=== PATIENT | male | born 1930 | race Two or more races ===

== ENCOUNTER 2020-09-13 20:25 | Inpatient (IN) | payer MEDICARE, BC ==
[2020-09-13] MEDS ORDERED: ONDANSETRON 4 MG/2 ML VIAL IVP STA (20:56)
[2020-09-13] MEDS ORDERED: PANTOPRAZOLE 40 MG/10 ML VIAL IVP STA (20:56)
[2020-09-13] MEDS ORDERED: SODIUM CHLORIDE 0.9% 1,000 ML IV STA (20:56)
--- NOTE | 2020-09-13 21:07 | ED ---
Abdominal Pain HPI - General Chief Complaint: Abdominal Pain Stated Complaint: Abd Pain Time Seen by Provider: 09/13/20 20:45 Source: patient, EMS Mode of arrival: EMS Limitations: no limitations - History of Present Illness Initial Comments: This 89-year-old male presents with a complaint of abdominal pain and vomiting. He states that the abdominal pain is diffuse in nature. It came on this past evening. He was seen at [facility] and had workup which showed slight elevation of his AST and ALTs but otherwise normal labs. He also had CT imaging of his abdomen and pelvis which did not show any acute abnormalities. Discharge home with recommend follow-up the next day for repeat laboratory analysis. Over the evening he apparently developed increased pain, nausea, and vomiting. He also apparently felt weak and somewhat fatigued. He went back to [facility] and they repeated the laboratory analysis. There was dramatic changes and his labs which show his SGOT and SGPT to increase severely from being mildly elevated due to being 2070 and 1127 respectively. The bilirubin went from normal to 3.5. The lipase 1 from normal to 16,800. His other labs were essentially within normal limits. They did do a chest x-ray which did not show any gross focal airspace disease appreciated with blunting of the costophrenic angles. He rates his current pain level at 2 of 10. He states that the nausea is intermittent. He had an EKG at the other facility which showed a normal sinus rhythm with no acute ST-T wave changes. Past medical history is positive for intracranial aneurysm, syncope, hypertension, pleural thickening bilaterally, hyperlipidemia, stress dose exposure, cellulitis of right leg, degenerative osteoarthritis, chronic renal disease, GERD, leg edema, onychomycosis, abnormality of gait, fatigue, pneumonia - Related Data Home Medications Medication Instructions Recorded Confirmed Aspirin EC [Ecotrin Low Dose] 81 mg PO DAILY 09/13/20 09/13/20 Calcium Carb/Magnesium Hydrox 2 tab PO DAILY 09/13/20 09/13/20 [Rolaids Chewable Tablet] Isosorbide Mononitrate ER [Imdur] 30 mg PO DAILY 09/13/20 09/13/20 Lisinopril [Prinivil] 10 mg PO DAILY 09/13/20 09/13/20 Potassium Chloride ER [K-Dur 20] 20 meq PO DAILY 09/13/20 09/13/20 Psyllium Husk [Metamucil] 0.4 gm PO DAILY 09/13/20 09/13/20 Simvastatin [Zocor] 10 mg PO DAILY 09/13/20 09/13/20 amLODIPine [Norvasc] 5 mg PO DAILY 09/13/20 09/13/20 Allergies Allergy/AdvReac Type Severity Reaction Status Date / Time hydromorphone [From Dilaudid] Allergy Unknown Verified 09/13/20 21:51 latex Allergy Rash/Hives Verified 09/13/20 21:51 Review of Systems ROS Statement: Those systems with pertinent positive or pertinent negative responses have been documented in the HPI. ROS Other: All systems not noted in ROS Statement are negative. Past Medical History History of Any Multi-Drug Resistant Organisms: None Reported Past Psychological History: No Psychological Hx Reported Smoking Status: Former smoker Past Alcohol Use History: Occasional Past Drug Use History: None Reported General Exam - General Exam Comments Initial Comments: GENERAL: The patient is well nourished and well hydrated. VITAL SIGNS: Heart rate, blood pressure, respiratory rate reviewed as recorded in nurse's notes. EYES: Pupils are round and reactive. Extraocular movements are intact. No conjunctival / lid redness or swelling. ENT: No external evidence of injury, swelling, or ecchymosis. Airway is patent. Throat is clear. NECK: Nontender. No swelling or evidence of injury. No subcutaneous emphysema. Trachea is midline. No thyroid mass. HEART: Regular rate and rhythm. Good peripheral pulses. LUNGS/CHEST: Breath sounds clear and equal bilaterally. No rales, rhonchi, or wheezes. No ecchymosis, subcutaneous emphysema, or tenderness. ABDOMEN: Mild diffuse abdominal tenderness noted. No palpable masses or organomegaly. No peritoneal signs. No abdominal wall swelling or ecchymosis. EXTREMITIES: No extremity tenderness. Normal muscle tone and function. No thoracolumbar tenderness. NEUROLOGIC: Sensation is grossly intact. Cranial nerve exam reveals face is symmetrical, tongue is midline, speech is clear. SKIN: No abrasions or ecchymosis is noted. No induration or masses noted. PSYCHIATRIC: Alert and oriented. Appropriate behavior and judgment. Limitations: no limitations Course Vital Signs 09/13/20 09/13/20 20:32 21:40 Temperature 98.1 F Pulse Rate 64 63 Respiratory 18 18 Rate Blood Pressure 159/71 157/75 O2 Sat by Pulse 99 99 Oximetry Medical Decision Making - Medical Decision Making The patient was seen and examined. All diagnostics were reviewed and these do include previous ER documents 2 from [facility], EKG, chest x-ray, and computed tomography scan findings. There is markedly elevation of his lipase and liver function studies which have occurred over the last day. It is felt as though this likely could be related to a stone in the common bile duct. A gallbladder ultrasound is ordered. He receives IV fluids and 4 of Zofran. His pain currently is well controlled. It is felt as though he will require admission to the hospital for further workup and treatment. He is agreeable with this plan. The gallbladder ultrasound does show evidence of multiple stones and appears contracted. The common bile duct is not visualized but there is no increased intrahepatic ducts. Case is discussed with internal medicine and patient will be admitted and gastroenterology will be consulted. - Lab Data Lab Results 09/13/20 Range/Units 21:17 Coronavirus (PCR) Not Detected (Not Detectd) Disposition Clinical Impression: Acute abdominal pain, Nausea and vomiting, Pancreatitis, Hypertension, We akness, Hepatic failure, Gallstones Disposition: ADMITTED IP TO THIS [facility] Condition: Fair Referrals: Devonte Encarnacion MD [Primary Care Provider] - 1-2 days Time of Disposition: 22:52 Decision Date: 09/13/20 Decision Time: 22:52
--- NOTE | 2020-09-13 22:42 | US ---
EXAMINATION TYPE: US gallbladder DATE OF EXAM: 09/13/2020 COMPARISON: NONE CLINICAL HISTORY: abd pain. Abdominal pain x couple weeks per patient. Hx appendectomy. EXAM MEASUREMENTS: Liver Length: 17.1 cm Gallbladder Wall: 0.35 cm CBD: Not visualized. Right Kidney: 12.9 x 4.3 x 4.8 cm Limited due to patient body habitus and overlying bowel gas. Pancreas: Limited, appears slightly heterogeneous. Liver: Limited. Appears coarse and to have an increased echogenicity. Measures 17.1 cm, upper limits of normal. Gallbladder: Not well seen. Shadowing appearance at area of the gallbladder. There appears to be th e anterior wall visible only, measuring slightly thick at 0.35 cm. Evidence for sonographic Aguirre's sign: Yes CBD: Not visualized. Right Kidney: Appears slightly enlarged. Possible column of Nick (arrow on image). IMPRESSION: There is some shadowing in the anticipated region of the gallbladder consistent with contracted gallb ladder filled with stones. No dilated ducts. Common bile duct not visualized. Intrahepatic bile ducts are not dilated.
[2020-09-13] MEDS ORDERED: NALOXONE 0.4 MG/ML 1 ML VIAL IV PRN (22:53)
[2020-09-13] MEDS ORDERED: MORPHINE SULFATE 4 MG/ML SYRINGE IV PRN (23:00)
[2020-09-13] MEDS ORDERED: ONDANSETRON 4 MG/2 ML VIAL IVP PRN (23:00)
--- NOTE | 2020-09-14 02:00 | P.HPIM ---
History of Present Illness H&P Date: 09/14/20 Patient is an 89-year-old male with a PMH of hypertension and hyperlipidemia who presented to the emergency room as a transfer from [facility]. History supplemental by the transfer documentation. The patient initially presented to [facility] on 09/12 at 10:30 PM with complaints of abdominal pain. The patient had reported abdominal pain, underwent laboratory evaluation showing mild transaminitis and a CT abdomen which was unremarkable. The patient was ultimately discharged home with a follow-up liver function panel testing and a primary care follow-up. The patient however return to the [facility] emergency room earlier today noting that his abdominal pain had worsened. The patient also now developed nausea and a single episode of vomiting and was brought in by his daughter. The patient's T evaluation now revealed a lipase of 16,800, AST 2070, ALT 1027, T bili 3.5, direct bili 2.7. Further evaluation revealed a sodium of 135, potassium 3.9, chloride 99, CO2 28, BUN 18, creatinine 0.8, glucose 117, WBC count 10.3, hemoglobin 16.0, CPK 170, CPK 56, INR 1.15. Repeat CT abdomen and pelvis revealed multiple gallstones with no findings to suggest acute cholecystitis patchy areas of lung consolidation and partially visualized lower lobes along with a masslike consolidation in the left lower lobe and a right lower lobe consolidation unchanged from prior. The patient was subsequently transferred to [place] emergency room and was admitted to the medicine service and subsequently seen and evaluated. He reports ongoing abdominal pain at time of interview, 5 out of 10, which had been gradually worsening over the past few days. The pain is diffuse throughout the abdomen, aching in nature, without clear alleviating or exacerbating features. He reports the single episode of vomiting earlier today which was nonbloody and nonbilious. Denied diarrhea. Denied history of gallstones or pancreatitis. Denied alcohol use. Further denied chest discomfort, shortness of breath, fever or chills, cough. A gallbladder ultrasound in the emergency room revealed cholelithiasis with a nonvisualized common bile duct and intrahepatic bile ducts not dilated. Review of systems: Pertinent positives and negatives as discussed in HPI, a complete review of sys tems was performed and all other systems are negative. Physical examination: General: non toxic, no distress, appears at stated age, normal weight Derm: no unusual rashes/lesions no unusual ecchymoses, warm, dry Head: atraumatic, normocephalic, symmetric Eyes: EOMI, no lid lag, anicteric sclera, pupils equal round reactive to light ENT: Nose and ears atraumatic, no thrush, no pharyngeal erythema Neck: No thyromegaly, no cervical lymphadenopathy, trachea midline, supple Mouth: no lip lesion, mucus membranes moist Cardiovascular: S1S2 reg, no murmur, positive posterior tibial pulse bilateral, no edema, capillary refill less than 2 seconds Lungs: CTA bilateral, no rhonchi, no rales , no accessory muscle use Abdominal: soft, diffuse, no guarding, no appreciable organomegaly, normal bowel sounds Ext: no gross muscle atrophy, muscle strength 5 out of 5 in all 4 extremities grossly, no contractures, Neuro: CN II-XI grossly intact, light touch intact all 4 extremities, finger to nose within normal limits, Psych: Alert, oriented, appropriate affect Assessment/plan Pancreatitis and transaminitis, possibly secondary to gallstones -GI consult for ERCP/MRCP -Continue with nothing by mouth -Monitor LFTs and lipase -IV fluids -Pain control -Antiemetics Chronic conditions: Hypertension, hyperlipidemia -Hold off on home statin in setting of transaminitis -Continue with home antihypertensives DVT prophylaxis -Lovenox The patient is admitted with an anticipated greater than than 2 midnight stay for evaluation of pancreatitis. CODE STATUS: Full code Discussed with: Patient Anticipated discharge date: 3-[address]: Home A total of 40 minutes was spent on the care of this complex patient more than 50% of the time was spent in counseling and care coordination. Past Medical History History of Any Multi-Drug Resistant Organisms: None Reported Past Psychological History: No Psychological Hx Reported Smoking Status: Former smoker Past Alcohol Use History: Occasional Past Drug Use History: None Reported Medications and Allergies Home Medications Medication Instructions Recorded Confirmed Type Aspirin EC [Ecotrin Low Dose] 81 mg PO DAILY 09/13/20 09/13/20 History Calcium Carb/Magnesium Hydrox 2 tab PO DAILY 09/13/20 09/13/20 History [Rolaids Chewable Tablet] Isosorbide Mononitrate ER [Imdur] 30 mg PO DAILY 09/13/20 09/13/20 History Lisinopril [Prinivil] 10 mg PO DAILY 09/13/20 09/13/20 History Potassium Chloride ER [K-Dur 20] 20 meq PO DAILY 09/13/20 09/13/20 History Psyllium Husk [Metamucil] 0.4 gm PO DAILY 09/13/20 09/13/20 History Simvastatin [Zocor] 10 mg PO DAILY 09/13/20 09/13/20 History amLODIPine [Norvasc] 5 mg PO DAILY 09/13/20 09/13/20 History Allergies Allergy/AdvReac Type Severity Reaction Status Date / Time hydromorphone [From Dilaudid] Allergy Unknown Verified 09/13/20 21:51 latex Allergy Rash/Hives Verified 09/13/20 21:51 Physical Exam Vitals: Vital Signs Temp Pulse Resp BP Pulse Ox 09/13/20 23:00 61 18 156/74 100 09/13/20 21:40 63 18 157/75 99 09/13/20 20:32 98.1 F 64 18 159/71 99 Intake and Output 09/13/20 09/13/20 09/14/20 14:59 22:59 06:59 Other: Weight 117.934 kg
[2020-09-14 04:01] LABS: Anisocytosis Slight; Basophils % (A) 0 %; Eosinophils # (A) 0.1 k/uL (0-0.7); Eosinophils % (A) 1 %; HCT 46.9 % (39.0-53.0); HGB 15.2 gm/dL (13.0-17.5); Lymphocytes # (A) 0.8 k/uL (1.0-4.8); Lymphocytes % (A) 9 %; MCH 30.2 pg (25.0-35.0); MCHC 32.4 g/dL (31.0-37.0); Mean Platelet Volume 7.9; Monocytes # (A) 0.4 k/uL (0-1.0); Monocytes % (A) 5 %; Neutrophils # (A) 7.3 k/uL (1.3-7.7); Neutrophils % (A) 85 %; Platelet Count 135 k/uL (150-450); RBC 5.04 m/uL (4.30-5.90); RDW 17.1 % (11.5-15.5); WBC 8.7 k/uL (3.8-10.6)
[2020-09-14 04:12] LABS: African American GFR (CKD) >90 (>60 ml/min/1.73 sqM); Albumin 3.7 g/dL (3.5-5.0); Alkaline Phosphatase 203 U/L (38-126); Anion Gap 7 mmol/L; Blood Urea Nitrogen 20 mg/dL (9-20); Carbon Dioxide 26 mmol/L (22-30); Chloride 105 mmol/L (98-107); Glucose 122 mg/dL (74-99); Magnesium 2.2 mg/dL (1.6-2.3); Non-African American GFR(CKD) 86 (>60 ml/min/1.73 sqM); Phosphorus 3.8 mg/dL (2.5-4.5); Potassium 4.4 mmol/L (3.5-5.1); Sodium 138 mmol/L (137-145); Total Bilirubin 4.4 mg/dL (0.2-1.3); Total Protein 6.3 g/dL (6.3-8.2)
[2020-09-14 04:21] LABS: ALT 831 U/L (4-49); AST 1330 U/L (17-59)
[2020-09-14 04:25] LABS: INR 1.1 (<1.2); Prothrombin Time 11.4 sec (9.0-12.0)
[2020-09-14 04:35] LABS: Lipase 4239 U/L (23-300)
[2020-09-14] MEDS ORDERED: CALCIUM CARB PO SCH (09:00)
[2020-09-14] MEDS ORDERED: [UNRECOGNIZED DRUG - OTHER] PO SCH (09:00)
[2020-09-14] MEDS ORDERED: ATORVASTATIN 10 MG TAB PO SCH (09:00)
[2020-09-14] MEDS ORDERED: MAGNESIUM HYDROX PO SCH (09:00)
[2020-09-14] MEDS: amLODIPine 5 MG TAB PO SCH (10:12)
[2020-09-14] MEDS: ISOSORBIDE MONONITRATE ER 30 MG TAB.ER.24H PO SCH (10:12)
[2020-09-14] MEDS: lisinopriL 10 MG TAB PO SCH (10:12)
[2020-09-14] MEDS: PSYLLIUM HUSK 100% 6 GM PACKET PO SCH (10:15)
[2020-09-14] MEDS: POTASSIUM CHLORIDE ER 20 MEQ TAB.ER PO SCH (10:16)
[2020-09-14] MEDS: ASPIRIN 81 MG PO SCH (10:16)
[2020-09-14] MEDS: ENOXAPARIN 40 MG/0.4 ML SYRINGE SQ SCH (10:16)
--- NOTE | 2020-09-14 11:08 | P.PN ---
Subjective Progress Note Date: 09/14/20 Pt still c/o abd pain. Has dry throat. ANNA. Objective - Vital Signs Vital signs: Vital Signs Temp 98.1 F 09/13/20 20:32 Pulse 53 L 09/14/20 06:00 Resp 14 09/14/20 06:00 BP 154/73 09/14/20 06:00 Pulse Ox 98 09/14/20 06:00 Intake & Output 09/13/20 09/14/20 09/14/20 18:59 06:59 18:59 Weight 117.934 kg - Exam Gen: awake, alert HEENT: normocephalic, atraumatic, good hearing acuity, moist mucous membranes Resp: good air exchange, breathing comfortably with no accessory muscle use, clear to auscultation bilaterally without wheezes or crackles CVS: good distal perfusion x 4, regular rate and rhythm without murmurs GI: Soft, tenderness to palpation in the right upper quadrant, epigastrium, nondistended : no SPT, no CVAT, jessica catheter not present MSK: no pitting edema, no clubbing Neuro: non-focal, moving all extremities Psych: cooperative, euthymic mood - Labs CBC & Chem 7: 09/14/20 03:47 09/14/20 03:47 Labs: Abnormal Lab Results - Last 24 Hours (Table) 09/14/20 09/14/20 Range/Units 03:47 03:47 RDW 17.1 H (11.5-15.5) % Plt Count 135 L (150-450) k/uL Lymphocytes # 0.8 L (1.0-4.8) k/uL Glucose 122 H (74-99) mg/dL Total Bilirubin 4.4 H (0.2-1.3) mg/dL AST 1330 H (17-59) U/L ALT 831 H (4-49) U/L Alkaline Phosphatase 203 H (38-126) U/L Lipase 4239 H (23-300) U/L Assessment and Plan Assessment: Gallstone Pancreatitis -GI consult for ERCP/MRCP -Gen Sx consult for cholecystectomy -Continue with nothing by mouth -Monitor LFTs and lipase -IV fluids -Pain control -Antiemetics Chronic conditions: Hypertension, hyperlipidemia -Hold off on home statin in setting of transaminitis -Continue with home antihypertensives DVT prophylaxis -Lovenox The patient is admitted with an anticipated greater than than 2 midnight stay for evaluation of pancreatitis. CODE STATUS: Full code Discussed with: Patient Anticipated discharge date: 3-[address]: Home
[2020-09-14] MEDS: PANTOPRAZOLE 40 MG/10 ML VIAL IV SCH (11:33)
--- NOTE | 2020-09-14 11:54 | P.GSCN ---
History of Present Illness Consult date: 09/14/20 History of present illness: CHIEF COMPLAINT: Abdominal pain HISTORY OF PRESENT ILLNESS: This is a 89-year-old male with a known history of hypertension and hyperlipidemia. Patient's surgical history includes an appendectomy as a child. Patient presents to the hospital with complaints of abdominal pain. Please note most of history is obtained from patient's iva huitron. Patient's abdominal pain started suddenly on Saturday evening. Patient reports the pain as a band around the upper abdomen. He had no relief in his symptoms after taking Tums or Aleve. He went to [facility] on 09/12/2020 and per patient's daughter had computed tomography scan of the abdomen with no contrast is unremarkable and mildly elevated liver enzymes. Patient was discharged home. Patient's pain continued to worsen he returned again to [place] emergency room on 09/13/2020 and was told that his liver enzymes and lipase had increased. Patient had a repeat computed tomography scan of the abdomen and pelvis showing multiple gallstones. Patient was therefore transferred to [facility]. He had an abdominal ultrasound completed here showing some shadowing in the anticipated region of the gallbladder consistent with contracted gallbladder filled with stones. No dilated ducts. Common bile duct was not visualized. Intrahepatic bile ducts are not dilated. Patient is still reporting epigastric and right upper quadrant pain with nausea. Medications are helping. Surgical service has been consulted regards to gallstone pancreatitis. GI service is also on consult for possible ERCP. Patient denies any cardiac history. PAST MEDICAL HISTORY: See list. PAST SURGICAL HISTORY: See list. MEDICATIONS: See list. ALLERGIES: See list. SOCIAL HISTORY: No illicit drug use. REVIEW OF SYSTEMS: CONSTITUTIONAL: Denies fever or chills. HEENT: Denies blurred vision, vision changes, or eye pain. Denies hemoptysis ENDOCRINE: Denies heat or cold intolerance. CARDIOVASCULAR: Denies chest pain or pressure. RESPIRATORY: No shortness of breath. GASTROINTESTINAL: Please refer to HPI NEURO: Denies history of seizures. PSYCH: No depression or suicidal ideation HEMATOLOGIC: Denies bleeding disorders. LYMPHATIC: The patient denies any lumps and bumps around the neck. GENITOURINARY: Denies any blood in urine or increased urinary frequency. MUSCULOSKELETAL: Denies myalgias. Denies joint swelling. Denies decreased range of motion beyond patients baseline. SKIN: Denies pruitis. Denies rash. PHYSICAL EXAM: VITAL SIGNS: Reviewed GENERAL: Well-developed in no acute distress. HEENT: No sclera icterus. Extraocular movements grossly intact. Moist buccal mucosa. Head is atraumatic, normocephalic. Hears conversational speech. No nasal drainage. NECK: Supple without lymphadenopathy. CHEST: Non-labored respirations and equal bilateral excursions. CARDIOVASCULAR: Regular rate with regular rhythm. Palpable 2+ radial pulses. ABDOMEN: Soft. Nondistended. Tenderness in the epigastric or right upper quadrant areas MUSCULOSKELETAL: No clubbing or cyanosis. NEUROLOGIC: No focal or lateralizing signs. Cranial nerves II through XII mavis sly intact. PSYCH: Appropriate affect. Alert and oriented to person, place and time. SKIN: Well perfused. Good skin turgor. LABORATORY DATA: WBC 8.7 hemoglobin 15.2 platelets 135 sodium 138 potassium 4.4 creatinine 0.66 glucose 122 Total bilirubin 4.4 AST 1330 ALT 831 alk phos 203 lipase 4230 IMAGING: Abdominal ultrasound completed here showing some shadowing in the anticipated region of the gallbladder consistent with contracted gallbladder filled with stones. No dilated ducts. Common bile duct was not visualized. Intrahepatic bile ducts are not dilated. ASSESSMENT: 1. Gallstone pancreatitis 2. Elevated LFTs 3. Prior history of appendectomy 4. Hypertension 5. Hyperlipidemia PLAN: -Further recommendations forthcoming per surgeon -Awaiting GI evaluation regarding ERCP -Keep patient nothing by mouth -Continue IV fluids -Continue pain medication as needed -Continue antiemetics as needed Thank you for this consultation Physician Mortgage Banker note has been reviewed by physician. Signing provider agrees with the documented findings, assessment, and plan of care. Past Medical History Past Medical History: Cancer, GERD/Reflux, Hearing Disorder / Deafness, Hyperlipidemia, Hypertension, Pneumonia, Renal Disease, Respiratory Disorder, Sleep Apnea/CPAP/BIPAP, Syncope, Vascular Disorder Additional Past Medical History / Comment(s): Asbestos exposure while in the [place], bilateral pleural thickening, past R pleural effusion, JORGE L CKD, occasional lower leg edema, venous stasis, dermatitis, past R lower leg ce llulitis, skin cancer with removals, constipation, abnormal gait, fatigue. History of Any Multi-Drug Resistant Organisms: None Reported Past Surgical History: Appendectomy Additional Past Surgical History / Comment(s): Nasal surgery d/t fracture, vein stripping in legs, benign tumor removed from back of neck, dermoid cyst removed from back, skin cancer removals, Past Anesthesia/Blood Transfusion Reactions: No Reported Reaction Additional Past Anesthesia/Blood Transfusion Reaction / Comm: Pt has received blood in past without reaction. Smoking Status: Former smoker - Past Family History Father Family Medical History: Myocardial Infarction (AZ) Additional Family Medical History / Comment(s): Father of a [place] at the age of 56yrs. Mother Family Medical History: CVA/TIA Additional Family Medical History / Comment(s): Obesity. Mother of a CVA at the age of 63yrs. Medications and Allergies Home Medications Medication Instructions Recorded Confirmed Type Aspirin EC [Ecotrin Low Dose] 81 mg PO DAILY 09/13/20 09/13/20 History Calcium Carb/Magnesium Hydrox 2 tab PO DAILY 09/13/20 09/13/20 History [Rolaids Chewable Tablet] Isosorbide Mononitrate ER [Imdur] 30 mg PO DAILY 09/13/20 09/13/20 History Lisinopril [Prinivil] 10 mg PO DAILY 09/13/20 09/13/20 History Potassium Chloride ER [K-Dur 20] 20 meq PO DAILY 09/13/20 09/13/20 History Psyllium Husk [Metamucil] 0.4 gm PO DAILY 09/13/20 09/13/20 History Simvastatin [Zocor] 10 mg PO DAILY 09/13/20 09/13/20 History amLODIPine [Norvasc] 5 mg PO DAILY 09/13/20 09/13/20 History Allergies Allergy/AdvReac Type Severity Reaction Status Date / Time hydromorphone [From Dilaudid] Allergy Unknown Verified 09/13/20 21:51 latex Allergy Rash/Hives Verified 09/13/20 21:51 Surgical - Exam Vital Signs Temp Pulse Resp BP Pulse Ox 98.1 F 64 18 159/71 99 09/13/20 20:32 09/13/20 20:32 09/13/20 20:32 09/13/20 20:32 09/13/20 20:32 Results - Labs 09/14/20 03:47 09/14/20 03:47 Abnormal Lab Results - Last 24 Hours (Table) 09/14/20 09/14/20 Range/Units 03:47 03:47 RDW 17.1 H (11.5-15.5) % Plt Count 135 L (150-450) k/uL Lymphocytes # 0.8 L (1.0-4.8) k/uL Glucose 122 H (74-99) mg/dL Total Bilirubin 4.4 H (0.2-1.3) mg/dL AST 1330 H (17-59) U/L ALT 831 H (4-49) U/L Alkaline Phosphatase 203 H (38-126) U/L Lipase 4239 H (23-300) U/L Diabetes panel 09/14/20 Range/Units 03:47 Sodium 138 (137-145) mmol/L Potassium 4.4 (3.5-5.1) mmol/L Chloride 105 (98-107) mmol/L Carbon Dioxide 26 (22-30) mmol/L BUN 20 (9-20) mg/dL Creatinine 0.66 (0.66-1.25) mg/dL Glucose 122 H (74-99) mg/dL Calcium 9.0 (8.4-10.2) mg/dL AST 1330 H (17-59) U/L ALT 831 H (4-49) U/L Alkaline Phosphatase 203 H (38-126) U/L Total Protein 6.3 (6.3-8.2) g/dL Albumin 3.7 (3.5-5.0) g/dL Calcium panel 09/14/20 Range/Units 03:47 Calcium 9.0 (8.4-10.2) mg/dL Phosphorus 3.8 (2.5-4.5) mg/dL Albumin 3.7 (3.5-5.0) g/dL Pituitary panel 09/14/20 Range/Units 03:47 Sodium 138 (137-145) mmol/L Potassium 4.4 (3.5-5.1) mmol/L Chloride 105 (98-107) mmol/L Carbon Dioxide 26 (22-30) mmol/L BUN 20 (9-20) mg/dL Creatinine 0.66 (0.66-1.25) mg/dL Glucose 122 H (74-99) mg/dL Calcium 9.0 (8.4-10.2) mg/dL Adrenal panel 09/14/20 Range/Units 03:47 Sodium 138 (137-145) mmol/L Potassium 4.4 (3.5-5.1) mmol/L Chloride 105 (98-107) mmol/L Carbon Dioxide 26 (22-30) mmol/L BUN 20 (9-20) mg/dL Creatinine 0.66 (0.66-1.25) mg/dL Glucose 122 H (74-99) mg/dL Calcium 9.0 (8.4-10.2) mg/dL Total Bilirubin 4.4 H (0.2-1.3) mg/dL AST 1330 H (17-59) U/L ALT 831 H (4-49) U/L Alkaline Phosphatase 203 H (38-126) U/L Total Protein 6.3 (6.3-8.2) g/dL Albumin 3.7 (3.5-5.0) g/dL
[2020-09-14] MEDS ORDERED: PIPERACILLIN-TAZOBACTAM 3.375 GM in SODIUM CHLORIDE 0.9% 100 ML IVPB SCH (12:00)
--- NOTE | 2020-09-14 14:09 | P.CONS ---
History of Present Illness - Reason for Consult Consult date: 09/14/20 Abdominal pain, pancreatitis Requesting physician: Marci Johnson - Chief Complaint Transfer from [facility] for abdominal pain, elevated LFTs - History of Present Illness A pleasant 89-year-old white male who was a transfer from [facility] with abdominal pain, nausea, and noted elevated LFTs and lipase. He has a past medical history of hypertension and hyperlipidemia. No previous coronary artery disease. He presented to [facility] on Saturday with right upper quadrant and epigastric pain, he had labs done and was sent home. He returned Saturday with increased pain associated with nausea and vomiting, he was noted to have an increase in LFTs, CT of the abdomen was unremarkable. He was subsequently transferred to this hospital for further management. He denies any previous history of liver disease, elevated LFTs, or pancreatitis. He denies any alcohol use, antibiotics or new medications. On admission his total bilirubin was 4.4, alkaline phosphatase 203, AST 1330, ALT 831, and lipase 4239. WBC 8.7, hemoglobin 15.2, hematocrit 46.9, platelet count 135,000, INR 1.1. Abdominal ultrasound showed coarse liver, with increased echogenicity. Some shadowing in an to region of gallbladder consistent with contracted gallbladder filled with stones. No dilated ducts. COPD not well visualized. Intrahepatic bile ducts not dilated. Review of Systems REVIEW OF SYSTEMS: CARDIOPULMONARY: No chest pain or shortness of breath. Gastrointestinal: Right upper quadrant and epigastric pain. Positive nausea or vomiting. No hematemesis, coffee-ground emesis. No rectal bleeding, or melena. Normal bowel movement. GENITOURINARY: No dysuria or hematuria. MUSCULOSKELETAL: Reports normal range of motion., Joint pain. SKIN: No rashes. No jaundice. ENDOCRINE: No chills, fevers. No excessive weight gain or loss. No polydipsia or polyuria. PSYCHIATRIC: Unremarkable. NEUROLOGY: No change in mental status. Denies dizziness, headache. ENT: Vision unremarkable. CONSTITUTIONAL: No recent weight loss. No fever, chills, night sweats. Past Medical History History of Any Multi-Drug Resistant Organisms: None Reported Past Psychological History: No Psychological Hx Reported Smoking Status: Former smoker Past Alcohol Use History: Occasional Past Drug Use History: None Reported - Past Family History Father Family Medical History: Myocardial Infarction ([place]) Additional Family Medical History / Comment(s): Father of a [place] at the age of 56yrs. Mother Family Medical History: CVA/TIA Additional Family Medical History / Comment(s): Obesity. Mother of a CVA at the age of 63yrs. Medications and Allergies Home Medications Medication Instructions Recorded Confirmed Type Aspirin EC [Ecotrin Low Dose] 81 mg PO DAILY 09/13/20 09/13/20 History Calcium Carb/Magnesium Hydrox 2 tab PO DAILY 09/13/20 09/13/20 History [Rolaids Chewable Tablet] Isosorbide Mononitrate ER [Imdur] 30 mg PO DAILY 09/13/20 09/13/20 History Lisinopril [Prinivil] 10 mg PO DAILY 09/13/20 09/13/20 History Potassium Chloride ER [K-Dur 20] 20 meq PO DAILY 09/13/20 09/13/20 History Psyllium Husk [Metamucil] 0.4 gm PO DAILY 09/13/20 09/13/20 History Simvastatin [Zocor] 10 mg PO DAILY 09/13/20 09/13/20 History amLODIPine [Norvasc] 5 mg PO DAILY 09/13/20 09/13/20 History Allergies Allergy/AdvReac Type Severity Reaction Status Date / Time hydromorphone [From Dilaudid] Allergy Unknown Verified 09/13/20 21:51 latex Allergy Rash/Hives Verified 09/13/20 21:51 Physical Exam Vitals: Vital Signs Temp Pulse Resp BP Pulse Ox 09/14/20 06:00 53 L 14 154/73 98 09/14/20 05:00 50 L 18 106/55 97 09/14/20 03:55 65 18 156/74 99 09/14/20 03:10 65 18 156/74 95 09/13/20 23:00 61 18 156/74 100 09/13/20 21:40 63 18 157/75 99 09/13/20 20:32 98.1 F 64 18 159/71 99 Intake and Output 09/13/20 09/14/20 09/14/20 22:59 06:59 14:59 Other: Weight 117.934 kg General appearance: The patient is alert, oriented, appears in no acute distress. HET: Head is normocephalic and atraumatic. Conjunctiva pink. Sclera anicteric. Neck: Supple without lymphadenopathy. Trachea midline. Heart: S1 S2. Regular rate and rhythm. Lungs: Clear to auscultation.. Abdomen: Soft, right upper quadrant and epigastric tenderness, nondistended with bowel sounds. No guarding or rigidity. Skin: No rashes. Mildly jaundice. Extremities: No pedal edema. Neurological: No focal deficits. Alert and oriented 3. Results CBC & Chem 7: 09/14/20 03:47 09/14/20 03:47 Labs: Abnormal Lab Results - Last 24 Hours (Table) 09/14/20 09/14/20 Range/Units 03:47 03:47 RDW 17.1 H (11.5-15.5) % Plt Count 135 L (150-450) k/uL Lymphocytes # 0.8 L (1.0-4.8) k/uL Glucose 122 H (74-99) mg/dL Total Bilirubin 4.4 H (0.2-1.3) mg/dL AST 1330 H (17-59) U/L ALT 831 H (4-49) U/L Alkaline Phosphatase 203 H (38-126) U/L Lipase 4239 H (23-300) U/L US - abdomen: report reviewed (Liver coarse, increased echogenicity. Some shadowing in the anticipated region of gallbladder consistent with contracted gallbladder filled with stones. No dilated ducts. CPT nonpalpable visualized. Intrahepatic bile ducts not dilated.) Assessment and Plan (1) Pancreatitis Narrative/Plan: 10-year-old male who was transferred for [facility] with elevated LFTs, lipase and abdominal pain. Patient with no prior history of gallbladder disease or pancreatitis. Denies any previous history of liver disease or e levation in liver enzymes. He presented with elevated LFTs, total bilirubin 4.4, alkaline phosphatase 203, AST 1330, ALT 831, lipase 4239. Had a CT of the abdomen and [facility] that was unremarkable. Ultrasound of the abdomen here shows coarse liver with increased echogenicity. Some shadowing in this pain in region of gallbladder consistent with contracted gallbladder filled with stones. No dilated ducts. CBD is not well visualized. Intrahepatic bile ducts not dilated. There is likely dealing with a common bile duct obstruction, will proceed with ERCP tomorrow. Will begin IV Zosyn prophylactically. Current Visit: Yes Status: Acute Code(s): K85.90 - ACUTE PANCREATITIS WITHOUT NECROSIS OR INFECTION, UNSP SNOMED Code(s): 14519845 (2) Abdominal pain Current Visit: Yes Status: Acute Code(s): R10.9 - UNSPECIFIED ABDOMINAL PAIN SNOMED Code(s): 76085808 (3) Nausea and vomiting Current Visit: Yes Status: Acute Code(s): R11.2 - NAUSEA WITH VOMITING, UNSPECIFIED SNOMED Code(s): 28097671 Plan: 1. Clear liquid in moderation 2. Repeat lipase, CMP, CBC in the morning 3. Nothing by mouth after midnight 4. IV Zosyn every 12 hours 5. Indomethacin 100 mg per rectum one hour prior to ERCP 6. Plan for ERCP tomorrow, procedure discussed with patient and his daughter who is at the bedside in detail. Risks and benefits of procedure discussed with them, patient is willing to proceed. 7. Gen. surgery on consult 8. Antiemetics as needed Thank you consultation, we will continue to follow closely Dr. De Leon I agree with the dictator's note, documented as a scribe by Laura Wu.
[2020-09-15] MEDS: PIPERACILLIN-TAZOBACTAM 3.375 GM in SODIUM CHLORIDE 0.9% 100 ML IVPB SCH ×3 (01:41→16:36)
[2020-09-15 06:25] LABS: Anisocytosis Slight; HCT 43.3 % (39.0-53.0); HGB 14.4 gm/dL (13.0-17.5); MCH 30.6 pg (25.0-35.0); MCHC 33.2 g/dL (31.0-37.0); MCV 92.3 fL (80.0-100.0); Platelet Count 150 k/uL (150-450); WBC 17.9 k/uL (3.8-10.6)
[2020-09-15 09:44] LABS: African American GFR (CKD) 92.4 (60.0-200.0); Albumin 3.5 g/dL (3.80-4.90); Albumin/Globulin Ratio 1.75 (1.60-3.17); Anion Gap 7.1 mmol/L (4.00-12.00); BUN/Creat Ratio 28.75 Ratio (12.00-20.00); Calcium 8.4 mg/dL (8.7-10.3); Carbon Dioxide 22.9 mmol/L (21.6-31.8); Non-African American GFR(CKD) 79.8 (60.0-200.0); Total Bilirubin 2.5 mg/dL (0.2-1.2); Total Protein 5.5 g/dL (6.2-8.2)
[2020-09-15] MEDS: ISOSORBIDE MONONITRATE ER 30 MG TAB.ER.24H PO SCH (10:14)
[2020-09-15] MEDS: amLODIPine 5 MG TAB PO SCH (10:14)
[2020-09-15] MEDS: PANTOPRAZOLE 40 MG/10 ML VIAL IV SCH (10:14)
[2020-09-15] MEDS: lisinopriL 10 MG TAB PO SCH (10:14)
--- NOTE | 2020-09-15 11:17 | P.PN ---
Subjective Progress Note Date: 09/15/20 No new complaints. Reports improvement in abd pain with pain meds. NPO during interview with anticipated ERCP today. Objective - Vital Signs Vital signs: Vital Signs Temp 97.6 F 09/15/20 04:43 Pulse 75 09/15/20 04:43 Resp 18 09/15/20 04:43 BP 147/65 09/15/20 04:43 Pulse Ox 92 L 09/15/20 04:43 Intake & Output 09/14/20 09/15/20 09/15/20 18:59 06:59 18:59 Intake Total 100 Output Total 250 Balance -150 Weight 117.934 kg Intake: Intake, IV Titration 100 Amount Piperacillin-Tazobactam 3 100 .375 gm In Sodium Chloride 0.9% 100 ml @ 25 mls/hr IVPB Q8HR [facility] Rx# :[id number] Output: Urine 250 Other: Voiding Method Urinal Urinal # Voids 2 - Exam Gen: awake, alert HEENT: normocephalic, atraumatic, good hearing acuity, moist mucous membranes Resp: good air exchange, breathing comfortably with no accessory muscle use, clear to auscultation bilaterally without wheezes or crackles CVS: good distal perfusion x 4, regular rate and rhythm without murmurs GI: Soft, tenderness to palpation in the right upper quadrant, epigastrium, nondistended : no SPT, no CVAT, jessica catheter not present MSK: no pitting edema, no clubbing Neuro: non-focal, moving all extremities Psych: cooperative, euthymic mood - Labs CBC & Chem 7: 09/15/20 06:02 09/15/20 06:02 Labs: Abnormal Lab Results - Last 24 Hours (Table) 09/15/20 09/15/20 Range/Units 06:02 06:02 WBC 17.9 H (3.8-10.6) k/uL RDW 17.0 H (11.5-15.5) % BUN/Creatinine Ratio 28.75 H (12.00-20.00) Ratio Calcium 8.4 L (8.7-10.3) mg/dL Total Bilirubin 2.5 H (0.2-1.2) mg/dL AST 322 H (14-35) U/L ALT 480 H (10-49) U/L Alkaline Phosphatase 204 H (41-126) U/L Total Protein 5.5 L (6.2-8.2) g/dL Albumin 3.50 L (3.80-4.90) g/dL Lipase 208 H (14-60) U/L Assessment and Plan Assessment: Gallstone Pancreatitis -GI consult for ERCP, pending 09/15 -Gen Sx consult for cholecystectomy -Continue with nothing by mouth -Monitor LFTs and lipase -IV fluids -Pain control -Antiemetics Chronic conditions: Hypertension, hyperlipidemia -Hold off on home statin in setting of transaminitis -Continue with home antihypertensives DVT prophylaxis -Lovenox The patient is admitted with an anticipated greater than than 2 midnight stay for evaluation of pancreatitis. CODE STATUS: Full code Discussed with: Patient Anticipated discharge date: 3-[address]: Home
[2020-09-15] MEDS ORDERED: INDOMETHACIN 50MG SUPPOSITORY RECTAL ONE (12:00)
[2020-09-15] MEDS ORDERED: PHENYLEPHRINE-0.9% NACL SYG 1,000 MCG/10 ML SYRINGE ONE (13:43)
[2020-09-15] MEDS ORDERED: ROCURONIUM 10 MG/ML (5 ML VIAL) IV ONE (13:43)
[2020-09-15] MEDS ORDERED: PROPOFOL 10 MG/ML 20 ML VIAL IV ONE (13:43)
[2020-09-15] MEDS ORDERED: LIDOCAINE 1% INJ 10MG/ML (20 ML MDV) ONE (13:43)
[2020-09-15] MEDS ORDERED: SUCCINYLCHOLINE CHLORIDE 100 MG/5 ML SYR IV ONE (13:43)
[2020-09-15] MEDS ORDERED: ePHEDrine SULFATE/0.9% NACL/PF 50 MG/5 ML SYRINGE IV ONE (13:43)
--- NOTE | 2020-09-15 13:46 | P.PN ---
Subjective Progress Note Date: 09/15/20 CHIEF COMPLAINT: Gallstone pancreatitis HISTORY OF PRESENT ILLNESS: Surgical service is following regards to patient's gallstone pancreatitis. He has had slight decrease in his abdominal pain. Denies any nausea or vomiting. He is scheduled for ERCP today with GI service. He is currently nothing by mouth for today's procedure. He denies any nausea or vomiting. Afebrile. WBC is up at 17.9 hemoglobin 14.4 platelets 150 sodium 136 potassium 4.0 creatinine 0.8 total bilirubin and LFTs trending down. Lipase is down from 4239-208 PHYSICAL EXAM: VITAL SIGNS: Reviewed GENERAL: Well-developed in no acute distress. HEENT: No sclera icterus. Extraocular movements grossly intact. Moist buccal mucosa. Head is atraumatic, normocephalic. Hears conversational speech. No nasal drainage. NECK: Supple without lymphadenopathy. CHEST: Non-labored respirations and equal bilateral excursions. CARDIOVASCULAR: Palpable 2+ radial pulses. ABDOMEN: Soft. Nondistended tenderness with palpation of the right upper quadrant MUSCULOSKELETAL: No clubbing or cyanosis. NEUROLOGIC: No focal or lateralizing signs. Cranial nerves II through XII grossly intact. PSYCH: Appropriate affect. Alert and oriented to person, place and time. SKIN: Well perfused. Good skin turgor. ASSESSMENT: 1. Gallstone pancreatitis 2. Elevated LFTs 3. Prior history of appendectomy 4. Hypertension 5. Hyperlipidemia PLAN: -ERCP failed and was aborted per GI service. Therefore, from surgical standpoint would recommend that patient be transferred to a tertiary care center. He requires a higher level of care for his gallstone pancreatitis. -Continue antibiotics -Continue IV fluids -Continue pain medication as needed Physician Hr Specialist note has been reviewed by physician. Signing provider agrees with the documented findings, assessment, and plan of care. Objective - Vital Signs Vital signs: Vital Signs Temp 99.2 F 09/15/20 12:24 Pulse 75 09/15/20 12:24 Resp 18 09/15/20 12:24 BP 101/56 09/15/20 12:24 Pulse Ox 92 L 09/15/20 12:24 Intake & Output 09/14/20 09/15/20 09/15/20 18:59 06:59 18:59 Intake Total 100 Output Total 250 Balance -150 Weight 117.934 kg Intake: Intake, IV Titration 100 Amount Piperacillin-Tazobactam 3 100 .375 gm In Sodium Chloride 0.9% 100 ml @ 25 mls/hr IVPB Q8HR [facility] Rx# :[id number] Output: Urine 250 Other: Voiding Method Urinal Urinal # Voids 2 - Labs CBC & Chem 7: 09/15/20 06:02 09/15/20 06:02 Labs: Abnormal Lab Results - Last 24 Hours (Table) 09/15/20 09/15/20 Range/Units 06:02 06:02 WBC 17.9 H (3.8-10.6) k/uL RDW 17.0 H (11.5-15.5) % BUN/Creatinine Ratio 28.75 H (12.00-20.00) Ratio Calcium 8.4 L (8.7-10.3) mg/dL Total Bilirubin 2.5 H (0.2-1.2) mg/dL AST 322 H (14-35) U/L ALT 480 H (10-49) U/L Alkaline Phosphatase 204 H (41-126) U/L Total Protein 5.5 L (6.2-8.2) g/dL Albumin 3.50 L (3.80-4.90) g/dL Lipase 208 H (14-60) U/L
[2020-09-15] MEDS ORDERED: SODIUM CHLORIDE 0.9% 500 ML 500 ML IV ONE ×2 (13:48)
--- NOTE | 2020-09-15 15:29 | FL ---
Fluoroscopy HISTORY: Common bile duct stone, liver failure 8 seconds fluoroscopy time supplied to the referring clinician. 2 0 intraoperative C-arm images docu ment the procedure. See dictated report from gastroenterology.
--- NOTE | 2020-09-15 15:42 | P.PCN ---
Date of Procedure: 09/15/20 Description of Procedure: Brief history: 89-year-old white male who was a transfer from [facility] with abdominal pain, nausea, and noted elevated LFTs and lipase. He has a past medical history of hypertension and hyperlipidemia. No previous coronary artery disease. He presented to [facility] on Saturday with right upper quadrant and epigastric pain, he had labs done and was sent home. He returned Saturday with increased pain associated with nausea and vomiting, he was noted to have an increase in LFTs, CT of the abdomen was unremarkable. He was subsequently transferred to this hospital for further management. He denies any previous history of liver disease, elevated LFTs, or pancreatitis. He denies any alcohol use, antibiotics or new medications. On admission his total bilirubin was 4.4, alkaline phosphatase 203, AST 1330, ALT 831, and lipase 4239. WBC 8.7, hemoglobin 15.2, hematocrit 46.9, platelet count 135,000, INR 1.1. Abdominal ultrasound showed coarse liver, with increased echogenicity. Some shadowing in an to region of gallbladder consistent with contracted gallbladder filled with stones. No dilated ducts. Procedure performed: ERCP failed/aborted Preoperative diagnoses: Gallstone pancreatitis, abdominal pain, hyperbilirubinemia suspected choledocholithiasis IV sedation per anesthesia Estimated blood loss: Minimal. Procedure: After informed consent was obtained from the patient and after the risks benefits and complications including bleeding perforation and pancreatitis explained in detail the patient was brought into the endoscopy unit. The patient was placed in prone position and IV conscious sedation was administered by anesthesia under continuous monitoring. The Olympus side-viewing duodenoscope was then inserted into the mouth and esophagus intubated without any difficulty. The scope was gradually advanced into the stomach and duodenum. The major papilla was not well-visualized is multiple attempts to reduce the endoscope into a neutral position were unsuccessful and the endoscope could not be positioned appropriately for attempts at cannulation. Repositioning and external pressure unsuccessful. At this time the procedure was aborted. The patient tolerated the procedure well. Impression: Failed/aborted ERCP. Gallstone pancreatitis, hyperbilirubinemia, abdominal pain. Recommendations: The findings of this examination were discussed with the patient as well as a family. Given improvement in patient's bilirubin to 2.5 today, there is a possibility that the gallstone has passed through the bile duct. Case will be discussed with the surgical team and if plan is for laparoscopic cholecystectomy on Saturday MRI will be ordered, otherwise if recommendation from there service is for transfer to outside facility will hold off. Continue broad-spectrum antibiotic therapy. Continue supportive care. Continue other management as per primary team..
[2020-09-15 15:44] VITALS: BMI 36.2
[2020-09-15] MEDS: PSYLLIUM HUSK 100% 6 GM PACKET PO SCH (16:36)
[2020-09-15] MEDS: ASPIRIN 81 MG PO SCH (16:36)
[2020-09-15] MEDS: POTASSIUM CHLORIDE ER 20 MEQ TAB.ER PO SCH (16:36)
[2020-09-15] MEDS: ENOXAPARIN 40 MG/0.4 ML SYRINGE SQ SCH (16:36)
[2020-09-15 19:35] VITALS: BP 137/67; PULSE 72; RESP 16; TEMP 97.5
--- NOTE | 2020-09-16 11:22 | P.DS ---
Providers Date of admission: 09/13/20 22:53 Expected date of discharge: 09/16/20 Attending physician: Marci Johnson MD Consults: 09/13/20 23:03 Consult Physician Routine Consulting Provider: Graeme De Leon Consult Reason/Comments: abd pain, pancreatitis, hepatic failure Do you want consulting provider notified?: Yes 09/14/20 08:12 Consult Physician Routine Consulting Provider: Samaria Rome Consult Reason/Comments: Gallstone pancreatitis Do you want consulting provider notified?: Yes Primary care physician: Devonte Encarnacion MD Hospital Course: Gallstone Pancreatitis -GI consult for ERCP, was completed on 09/15, but was unsuccessful; could not find sphincter of oddi, no bulging at the sphincter, and no dilation of biliary ducts -Gen Sx consult for cholecystectomy, however, felt patient warrants transfer to tertiary care due to difficulty with ERCP -Continue with nothing by mouth -Patient was kept NPO for pancreatitis, and had specialty consultation as above. However, given patient's condition, he was transferred to [facility] under the care of Dr. Malik. Chronic conditions: Hypertension, hyperlipidemia -Held off on home statin in setting of transaminitis while in house -Continued with home antihypertensives Assessment: Gen: awake, alert HEENT: normocephalic, atraumatic, good hearing acuity, moist mucous membranes Resp: good air exchange, breathing comfortably with no accessory muscle use, clear to auscultation bilaterally without wheezes or crackles CVS: good distal perfusion x 4, regular rate and rhythm without murmurs GI: Soft, tenderness to palpation in the right upper quadrant, epigastrium, nondistended : no SPT, no CVAT, jessica catheter not present MSK: no pitting edema, no clubbing Neuro: non-focal, moving all extremities Psych: cooperative, euthymic mood Patient Condition at Discharge: Undetermined Plan - Discharge Summary Discharge Rx Participant: No New Discharge Prescriptions: No Action Psyllium Husk [Metamucil] 0.4 gm PO DAILY Simvastatin [Zocor] 10 mg PO DAILY Potassium Chloride ER [K-Dur 20] 20 meq PO DAILY Calcium Carb/Magnesium Hydrox [Rolaids Chewable Tablet] 2 tab PO DAILY Aspirin EC [Ecotrin Low Dose] 81 mg PO DAILY amLODIPine [Norvasc] 5 mg PO DAILY Lisinopril [Prinivil] 10 mg PO DAILY Isosorbide Mononitrate ER [Imdur] 30 mg PO DAILY Discharge Medication List Aspirin EC [Ecotrin Low Dose] 81 mg PO DAILY 09/13/20 [History] Calcium Carb/Magnesium Hydrox [Rolaids Chewable Tablet] 2 tab PO DAILY 09/13/20 [History] Isosorbide Mononitrate ER [Imdur] 30 mg PO DAILY 09/13/20 [History] Lisinopril [Prinivil] 10 mg PO DAILY 09/13/20 [History] Potassium Chloride ER [K-Dur 20] 20 meq PO DAILY 09/13/20 [History] Psyllium Husk [Metamucil] 0.4 gm PO DAILY 09/13/20 [History] Simvastatin [Zocor] 10 mg PO DAILY 09/13/20 [History] amLODIPine [Norvasc] 5 mg PO DAILY 09/13/20 [History] Follow up Appointment(s)/Referral(s): Devonte Encarnacion MD [Primary Care Provider] - 1-2 days Discharge Disposition: OTHER INSTITUTION NOT DEFINED
== END 2020-09-15 22:10 | disposition other institution (70) | DRG 440 ==
LOC: EC 20:25 → 5NMEDONC 22:53
PROVIDERS: ADMIT Internal Medicine; ATTEND Internal Medicine
PROC: 0DJ08ZZ Inspection of Upper Intestinal Tract, Via Natural or Artificial Opening Endoscopic (ICD-10-PCS; principal; 2020-09-15 12:55)
DX: K85.10 Biliary acute pancreatitis without necrosis or infection (principal); E78.5 Hyperlipidemia, unspecified; I12.9 Hypertensive chronic kidney disease with stage 1 through stage 4 chronic kidney disease, or unspecified chronic kidney disease; N18.9 Chronic kidney disease, unspecified; Z53.9 Procedure and treatment not carried out, unspecified reason; Z20.822 Contact with and (suspected) exposure to COVID-19; G47.33 Obstructive sleep apnea (adult) (pediatric); Z87.01 Personal history of pneumonia (recurrent); Z90.49 Acquired absence of other specified parts of digestive tract; Z87.891 Personal history of nicotine dependence; Z82.49 Family history of ischemic heart disease and other diseases of the circulatory system; Z79.82 Long term (current) use of aspirin; Z79.899 Other long term (current) drug therapy; Z91.040 Latex allergy status; Z82.3 Family history of stroke; Z85.828 Personal history of other malignant neoplasm of skin
CPT/HCPCS: 36410; 43235; 74330; 76705; 76937; 80053; 83690; 83735; 84100; 85025; 85027; 85610; 87635; 96361; 96374; 96375; 99285

== ENCOUNTER → 2020-12-09 | Outpatient (CLI) | payer MEDICARE, BC ==
--- NOTE | 2020-12-13 09:04 | PE ---
EXAMINATION TYPE: PET CT fusion skull to thigh DATE OF EXAM: 12/09/2020 COMPARISON: NONE at this institution. HISTORY: Abnormal recent CT, solitary pulmonary nodule. TECHNIQUE: Following the intravenous administration of 11.39 mCi of F-18 FDG, whole body images are performed from the skull base to the midthigh. Images are reviewed on the computer in the coronal, a xial, and sagittal planes. Reconstructed rotating images are created on independent workstation and reviewed on the computer. A localization and attenuation correction CT is performed in conjunction with the PET scan. Blood glucose level equals 100. SCAN: Initial Scan FINDINGS: SKULL BASE AND NECK: No abnormal hypermetabolic uptake. CHEST, MEDIASTINUM, AND HILAR REGION: Background moderate to advanced underlying emphysematous change greatest in the upper lungs. There is tiny right pleural effusion with more prominent posterior righ t basilar consolidation and/or atelectasis. Calcified pleural plaques bilaterally are noted. Correlat e for prior asbestos exposure. There is small left-sided pleural fluid collection with slightly more prominent superior lateral component. There is more nodular hypermetabolic lesion posterior left mid to lower lung region mimicking round or compressive atelectasis measuring roughly 4.0 x 3.5 cm axial image 108, max SUV is 10.08. No additional areas of abnormal hypermetabolic uptake in the thorax. ABDOMEN AND PELVIS: No adrenal masses are present. Normal excretion. No suspicious hypermetabolic upt salome. OSSEOUS STRUCTURES: Mild hypermetabolic uptake left sternoclavicular joint, max SUV is 3.21. Perhaps subtle sclerosis at this level. Correlate for healing or subacute fracture as there are no additional areas of abnormal hypermetabolic osseous uptake. OTHER CT: Mild nasal septal deviation. Surgical clips left submandibular region and neck noted. Enlarged pulmonary arteries consistent with underlying pulmonary artery hypertension. Moderate to sev ere three-vessel coronary artery calcification. Low lung volumes. Small degree of bilateral subareola r gynecomastia. Contracted gallbladder with small stones. Some cortical thinning both kidneys. Scattered colonic dive rticula. Enlarged prostate consistent with BPH. Scoliotic curvature with moderate multilevel spurring and disc space narrowing throughout the lumbar spine. Prominent multilevel facet arthropathy also noted. Moderate calcified plaque of the infrarenal abdominal aorta extends into iliac branch vessels. 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 L eft sternal lesion favors healing fracture, correlate clinically. No abnormal adenopathy or metastati c disease seen. Consider bronchoscopy follow-up for tissue diagnosis.
== END | disposition home or self-care (01) ==
LOC: RADPETMAIN 09:41
PROVIDERS: ATTEND Internal Medicine Pulmonary Disease
DX: R91.1 Solitary pulmonary nodule (principal); J92.0 Pleural plaque with presence of asbestos; E66.9 Obesity, unspecified; I10 Essential (primary) hypertension
CPT/HCPCS: 78815; A9552